=== PATIENT | male | born 1985 | race Caucasian/White ===

== ENCOUNTER 2018-12-23 10:24 | Emergency (ER) | payer SELFPAY ==
[~2018-12-23] VITALS: Ht 170.2 cm; Wt 74.4 kg
[2018-12-23 11:00] VITALS: BP 105/66
--- NOTE | 2018-12-23 11:38 | NUR ---
Patient/Caregiver given discharge instructions and they have confirmed that they understand the instructions. Patient ambulatory with steady gait.
== END 2018-12-23 11:46 | disposition home or self-care (01) ==
LOC: ED 11:33
DX: K02.9 Dental caries, unspecified (principal); Z88.0 Allergy status to penicillin
CPT/HCPCS: 99283

== ENCOUNTER 2020-01-06 01:35 | Emergency (ER) | payer SELFPAY ==
[~2020-01-06] VITALS: Ht 167.6 cm; Wt 74.5 kg
[2020-01-06] MEDS ORDERED: HYDROcodone/APAP 10/325 MG TABLET PO ONE (02:00)
[2020-01-06] MEDS ORDERED: HYDROcodone/APAP 5/325 TABLET ONE (02:04)
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
[2020-01-06 02:45] VITALS: BP 101/62
--- NOTE | 2020-01-06 02:45 | NUR ---
PT RESTING ON GURNEY WITH EYES CLOSED. RESPIRATIONS EVEN AND NONLABORED. CALL LIGHT WITHIN REACH, ALL SAFETY MEASURES IN PLACE.
== END 2020-01-06 03:11 | disposition home or self-care (01) ==
LOC: ED 02:05
DX: S80.12XA Contusion of left lower leg, initial encounter (principal); F17.210 Nicotine dependence, cigarettes, uncomplicated; W22.8XXA Striking against or struck by other objects, initial encounter; Y93.89 Activity, other specified; Y92.009 Unspecified place in unspecified non-institutional (private) residence as the place of occurrence of the external cause; Y99.8 Other external cause status
CPT/HCPCS: 29515; 99284; 99406

== ENCOUNTER 2020-06-26 18:23 | Emergency (ER) | payer SELFPAY ==
[~2020-06-26] VITALS: Ht 170.2 cm; Wt 73.8 kg
[2020-06-26 18:31] VITALS: BP 121/69
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
--- NOTE | 2020-06-26 19:03 | NUR ---
Report received from STACIA Enriquez. THis RN to assume care.
== END 2020-06-26 20:24 | disposition home or self-care (01) ==
LOC: ED 20:19
DX: S29.012A Strain of muscle and tendon of back wall of thorax, initial encounter (principal); F17.200 Nicotine dependence, unspecified, uncomplicated; W01.0XXA Fall on same level from slipping, tripping and stumbling without subsequent striking against object, initial encounter; Y93.89 Activity, other specified; Y92.89 Other specified places as the place of occurrence of the external cause; Y99.8 Other external cause status
CPT/HCPCS: 72072; 99284

== ENCOUNTER 2020-11-13 22:38 | Emergency (ER) | payer MEDICAID ==
[~2020-11-13] VITALS: Ht 170.2 cm; Wt 76.9 kg
[2020-11-13] MEDS ORDERED: ONDANSETRON 2MG/ML, 2ML IVPush ONE (23:00)
[2020-11-13] MEDS ORDERED: SODIUM CHLORIDE FLUSH 10ML SYR IVF ONE (23:00)
[2020-11-13] MEDS ORDERED: SODIUM CHLORIDE 0.9% 1,000ML IVBOLUS ONE (23:00)
[2020-11-13] MEDS ORDERED: KETOROLAC 30 MG/1 ML IVPush ONE (23:00)
[2020-11-13 23:30] LABS: BASOPHILS % (AUTO) 1 % (0-1); EOSINOPHILS % (AUTO) 2 % (1-7); LYMPHOCYTES % (AUTO) 29 % (22-44); MEAN CORPUSCULAR HEMOGLOBIN 30.1 pg (27.5-34.5); MEAN CORPUSCULAR HGB CONC 34.4 g/dL (33.2-36.2); MEAN PLATELET VOLUME 7.6 fL (7.4-10.4); MONOCYTES % (AUTO) 9 % (2-9); NEUTROPHILS % (AUTO) 59 % (42-75); PLATELET COUNT 310 x10^3/uL (130-400); RED BLOOD COUNT 5.37 x10^6/uL (4.38-5.82); RED CELL DISTRIBUTION WIDTH 13.7 % (9.4-14.8)
[2020-11-13 23:31] LABS: MD NO
[2020-11-13 23:36] LABS: ALANINE AMINOTRANSFERASE 24 U/L (12-78); ANION GAP 7 mmol/L (5-15); CALCIUM 9.3 mg/dL (8.5-10.1); CHLORIDE 108 mmol/L (98-107); CREATININE 1.11 mg/dL (0.7-1.3)
[2020-11-13 23:38] LABS: ALKALINE PHOSPHATASE 30 U/L (45-117); BILIRUBIN,TOTAL 0.3 mg/dL (0.2-1.0); TOTAL PROTEIN 7.7 g/dL (6.4-8.2)
[2020-11-13] MEDS ORDERED: KETOROLAC 30 MG/1 ML ONE (23:38)
[2020-11-13] MEDS ORDERED: ONDANSETRON 2MG/ML, 2ML ONE (23:38)
--- NOTE | 2020-11-13 23:44 | NUR ---
break rn, medicated for pain piv placed ivf infusing, pt in nad
[2020-11-14] MEDS ORDERED: DIPHENHYDRAMINE 50 MG/ML, 1ML ONE (00:18)
[2020-11-14 00:22] VITALS: BP 95/63
[2020-11-14] MEDS ORDERED: DIPHENHYDRAMINE 50 MG/ML, 1ML IVPush ONE (00:30)
--- NOTE | 2020-11-14 00:43 | NUR ---
IV discontinued, catheter intact.
== END 2020-11-14 00:44 | disposition home or self-care (01) ==
LOC: ED 23:54
DX: J06.9 Acute upper respiratory infection, unspecified (principal); Z20.822 Contact with and (suspected) exposure to COVID-19; R11.2 Nausea with vomiting, unspecified; R05 Cough; R19.7 Diarrhea, unspecified; R51.9 Headache, unspecified; R10.84 Generalized abdominal pain
CPT/HCPCS: 36415; 71045; 80053; 83690; 85025; 87635; 96361; 96374; 96375; 99284; J1200; J1885; J2405; J7030; 99285

== ENCOUNTER 2020-12-23 22:56 | Emergency (ER) | payer MEDICAID ==
[~2020-12-23] VITALS: Ht 175.3 cm; Wt 78.0 kg
[2020-12-23 23:02] VITALS: BP 127/78
--- NOTE | 2020-12-23 23:19 | NUR ---
pt in room, waiting for MD. no acute distress at this time.
--- NOTE | 2020-12-23 23:44 | NUR ---
PA to bedside to eval and treat the abcesses on the skin. pt tolerated well, no acute distress.
[2020-12-24] MEDS ORDERED: HYDROmorphone 1 MG/ML, 1ML INJ IV ONE
--- NOTE | 2020-12-24 00:07 | NUR ---
f/u and d/c instructions given to pt, in no acute distress at this time, and verbalized no pain at this time, nor need for pain meds. pt ambulatory and d/c'd without incident.
== END 2020-12-24 00:08 | disposition home or self-care (01) ==
LOC: ED 23:34
DX: L02.213 Cutaneous abscess of chest wall (principal); L02.413 Cutaneous abscess of right upper limb; L02.416 Cutaneous abscess of left lower limb; Z88.9 Allergy status to unspecified drugs, medicaments and biological substances
CPT/HCPCS: 99283

== ENCOUNTER 2021-08-01 20:39 | Emergency (ER) | payer MEDICAID ==
[~2021-08-01] VITALS: Ht 170.2 cm; Wt 82.1 kg
[2021-08-01 20:44] VITALS: BP 114/75
--- NOTE | 2021-08-01 20:49 | NUR ---
[employer] SUPERVISOR: COVID SWAB COMPLETED AND SENT TO LAB FROM [facility].
--- NOTE | 2021-08-01 21:08 | NUR ---
Patient/Caregiver given discharge instructions and they have confirmed that they understand the instructions. Patient ambulatory with steady gait. NAD, all questions answered appropriately, denies additional needs at this time. No personal belongings left in room after discharge.
== END 2021-08-01 21:09 | disposition home or self-care (01) ==
LOC: ED 20:40
DX: U07.1 COVID-19 (principal); B34.9 Viral infection, unspecified; J06.9 Acute upper respiratory infection, unspecified
CPT/HCPCS: 99283; U0003; U0005